=== PATIENT | female | born 1990 | race Caucasian/White ===

== ENCOUNTER 2025-06-21 07:58 | Emergency (ER) | payer OTHER, SELFPAY ==
--- NOTE | ~2025-06-21 | US_ITS ---
EXAMINATION: US pelvic complete w TV INDICATION: Passed blood clots. Comparison:No prior studies for comparison. TECHNIQUE: Multiple transabdominal and endovaginal sonographic images of the pelvis performed. FINDINGS: The uterus measures 8.9 x 4.6 x 4.7 cm. The endometrial complex measures 5 mm. The right ovary measures 3 x 3 x 2.4 cm and the left ovary measures 3 x 2.7 x 3.2 cm. There are small follicles in each ovary. Normal doppler signal in both ovaries. There is no free fluid in the pelvis. There are no abnormal masses seen on either side. IMPRESSION: 1. Unremarkable pelvic ultrasound. Reviewed, dictated and finalized at location I. 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
--- OUTSIDE RECORDS SUMMARY | 2025-06-21 08:02 | XMS_ITS | Clinical Summary ---
Author Organization [facility] Virtual Care Address [address] [place] [phone] Phone Care Team Providers Care School Clerk Name Role Phone Susi Negro NP Primary Care Provider [phone] Allergies Active Allergy Reactions Criticality Noted Date Comments Avocado Swollen tongue High 05/24/2025 Only fresh Avocado Coconut Swollen tongue High 05/24/2025 Frank Swollen tongue High 05/24/2025 Also vomit Benton Swollen tongue High 05/24/2025 Medications multivitamin with minerals tablet Take 1 tablet by mouth daily Active inhalational spacing device (Aerochamber MV) spacerIndications: Viral URI with cough Use with albuterol inhaler 1 each 5 Active methylphenidate ER (CONCERTA) 36 mg CR tabletIndications: Attention deficit hyperactivity disorder (ADHD), predominantly inattentive type TAKE 2 TABLETS BY MOUTH ONCE DAILY IN THE MORNING 5 Active metFORMIN (GLUCOPHAGE) 1,000 mg tabletIndications: PCOS (polycystic ovarian syndrome) Take 1 tablet (1,000 mg total) by mouth daily with breakfast 90 tablet 4 5 04/26/20 26 Active albuterol HFA (PROVENTIL HFA,VENTOLIN HFA,PROAIR HFA) 90 mcg/actuation inhalerIndications :Viral URI with cough Inhale 2 puffs every 4 (four) hours as needed for wheezing or shortness of breath 18 g 5 Active drospirenone-ethin yl estradioL (Elissa, 28,) 3-0.02 mg per tabletIndications: OCP (oral contraceptive pills) initiation Take 1 tablet by mouth daily 84 tablet 3 5 05/24/20 26 Active Active Problems Problem Noted Date Diagnosed Date PCOS (polycystic ovarian syndrome) 04/26/2024 Assessment & Plan (04/26/2025 8:40 AM CDT): Stable Has started having more consistent menstrual cycles approx every 29 days Metformin 1000 mg daily Orders: metFORMIN (GLUCOPHAGE) 1,000 mg tablet; Take 1 tablet (1,000 mg total) by mouth daily with breakfast Hemoglobin A1c; Future Ambulatory referral to Gynecology; Future Assessment & Plan (04/26/2024 12:54 PM CDT): Previously diagnosed Was on Metformin previously Restart Metformin 500 mg BID Attention deficit hyperactiv ity disorder (ADHD), predominantly inattentive type 04/26/2024 Assessment & Plan (04/26/2025 8:40 AM CDT): Chronic, stable Follows with psychiatry online Continue Concerta 36 mg daily Assessment & Plan (04/26/2024 12:55 PM CDT): Seeing psychiatrist online out of [place]; Jackie Covarrubias Continue Adderall XR 20 mg daily Encounters Date Type Department Care Team Description 06/05/2025 8:[address] Lab [address] [address] Screening for STD (sexually transmitted disease) 05/29/2025 Results Follow-Up [facility] at [address] [address] Torres Elizabeth NP Pap and HPV, reflex to HPV Genotypes 05/24/2025 1:[address] Office Visit [facility] at [address] [address] Torres Elizabeth NP Well woman exam (Primary Dx); Screening for STD (sexually transmitted disease); OCP (oral contraceptive pills) initiation 04/28/2025 Telephone [facility] [address] [place] [address] [address] [place] [address] Betty Brian 04/26/2025 9:00 AM CDT Lab [facility] [address] [place] [address] Screening for thyroid disorder; PCOS (polycystic ovarian syndrome); Encounter for screening for lipid disorder; Encounter for annual physical exam 04/26/2025 8:30 AM CDT [facility] Visit [facility] [address] [phone] Susi Negro NP Encounter for annual physical exam (Primary Dx); PCOS (polycystic ovarian syndrome); Encounter for screening for lipid disorder; Viral URI with cough; Attention deficit hyperactivity disorder (ADHD), predominantly inattentive type; Screening for thyroid disorder 04/26/2025 Results Follow-Up [facility] [address] [place] [phone] Susi Negro NP Thyroid Function [place], Hemoglobin A1c, Lipid panel, Additional followed-up results: 4 from Last 3 Months Immunizations Immunization Administration Dates Next Due Influenza, Unspecified 04/26/2024(Deferr ed: Patient Refused),04/19/2023(Deferred: Patient Refused) Medical History Medical History Date Comments PCOS (polycystic ovarian syndrome) ADHD (attention deficit hyperactivity disorder) Asthma Family History Medical History Relation Name Comments Lung cancer Father Urolithiasis Father Cancer Father's Brother Possibly in lymph node in neck? Breast cancer reoccurrence Maternal Grandmother Maternal Great Grandmother Diabetes Maternal Grandmother Insulin dependent Asthma Mother Hyperlipidemia Mother Hypertension Mother Sexual abuse Mother By her father Lung cancer Mother's Brother Small cell lung Lung cancer Paternal Grandfather Small c ell lung Breast cancer Paternal Grandmother Polycystic ovary syndrome Sister Sexual abuse Sister Raped multiple times Urolithiasis Sister Colon cancer Neg Hx Ovarian cancer Neg Hx Uterine cancer Neg Hx Relation Name Status Comments Father Father's Brother Maternal Grandmother Mother Alive Mother's Brother Other Paternal Grandfather Paternal Grandmother Sister Social History Tobacco Use Types Packs/Day Years Used Date Smoking Tobacco: Never Smokeless Tobacco: Never Tobacco Cessation:Counseling Given: Not Answered AUDIT-C Answer Date Recorded Q1: How often do you have a drink containing alcohol? Never 04/26/2024 Q2: How many drinks containi ng alcohol do you have on a typical day when you are drinking? Patient does not drink Q3: How often do you have si x or more drinks on one occasion? Never 04/26/2024 PHQ-2 Answer Date Recorded PHQ-2 Total Score 0 05/24/2025 Comments No Sex and Gender Information Value Date Recorded Sex Assigned at Not on file Legal Sex Female 12:32 PM CDT Gender Identity Not on file Sexual Orientation Not on file Obstetrics History Para Term AB IAB SAB Ectopic Multiple Livin g Live Births 1 1 1 Date Outcome GA Total Labor Labor/2nd/3rd Weight Sex Type Anes PTL Brittney A1 A5 Name Clin 022 Term 39w 0d M C-Sec tion Epidura l Complications:Hypotension,De livery by emergency ,Umbilical cord around neck with cord compression Last Filed Vital Signs Vital Sign Reading Time Taken Comments Blood Pressure 108/72 05/24/2025 1:[address] Pulse 76 04/26/2025 8:14 AM CDT Temperature 36.6 C (97.9 F) 04/26/2025 8:14 AM CDT Respiratory Rate 16 04/26/2025 8:14 AM CDT Oxygen Saturation 99% 04/26/2025 8:14 AM CDT Inhaled Oxygen Concentration - - Weight 78.9 kg (174 lb) 05/24/2025 1:[address] Height 157.5 cm (5' 2) 05/24/2025 1:[address] Body Mass Index 31.83 05/24/2025 1:[address] Plan of Treatment Health Maintenance Due Date Last Done Comments DTaP/Tdap/Td Vaccine (1 - Tdap) 2001 Varicella Vaccines (1 of 2 - 13+ 2-dose series) 2003 HPV Vaccines (1 - 3-dose SCD M series) 2017 Influenza Vaccine (#1) 2025 Cervical Cancer Screening 05/24/2026 05/24/2025 Depression Screening 05/24/2026 05/24/2025, 04/26/2025, 04/26/2024 Regular Well Visit/Exam 18-64 05/24/2026, 04/26/2025 Hepatitis B Screening Completed 06/05/2025 Hepatitis C Screening Completed 06/05/2025 , 04/26/2024 Pneumococcal vaccine <65 Aged Out No longer eligible based on patient's age to complete this topic Procedures Procedure Name Priority Date/Time Associated Diagnosis Comments HSV 2 ANTIBODY, IGG Routine 06/05/2025 8 :[address] Screening for STD (sexually transmitted disease) HSV 1 ANTIBODY, IGG Routine 06/05/2025 8 :[address] Screening for STD (sexually transmitted disease) HIV 1/2 ANTIBODY PLUS P24 ANTIGEN Routine 06/05/2025 8:[address] Screening for STD (sexually transmitted disease) RPR Routine 06/05/2025 8:[address] Screening for STD (sexually transmitted disease) HEPATITIS C ANTIBODY Routine 06/05/2025 8:[address] Screening for STD (sexually transmitted disease) HEPATITIS B SURFACE ANTIGEN Routine 06/05/2025 8:[address] Screening for STD (sexually transmitted disease) PAP AND HPV, REFLEX TO HPV GENOTYPES Routine 05/24/2025 1:[address] Well woman exam N. GONORRHOEAE/C. TRACHOMATIS AMPLIFICATION Routine 05/24/2025 1:[address] EGFR Routine 04/26/2025 9:49 AM CDT Encounter for annual physical exam DIFFERENTIAL AUTO Routine 04/26/2025 9:4 9 AM CDT Encounter for annual physical exam CBC WITH AUTO DIFFERENTIAL Routine 04/26/2025 9:49 AM CDT Encounter for annual physical exam COMPREHENSIVE METABOLIC PANEL Routine 04/26/2025 9:49 AM CDT Encounter for annual physical exam LIPID PANEL Routine 04/26/2025 9:49 AM CDT Encounter for screening for lipid disorder HEMOGLOBIN A1C Routine 04/26/2025 9:49 AM CDT PCOS (polycystic ovarian syndrome) THYROID FUNCTION CASCADE Routine 04/26/2025 9:49 AM CDT Screening for thyroid disorder from Last 3 Months Results * HIV 1/2 Antibody plus p24 Antigen Blood (06/05/2025 8:[address]) HIV 1/2 ab + p24 ag Nonreactive Nonreactive Comment:Nonreactive for HIV- 1 antigen and HIV-1/HIV-2 antibodies. No laboratory evidence of HIV infection. If acute HIV infection is suspected, consider testing for HIV-1 RNA. Current interpretive data was last revised on 22. Blood 06/05/2025 8:[address] 06/05/2025 11:[address] Torres Elizabeth [facility] MICROBIOLOGY [employer] [facility] ORDERABLES Final Result VIVIANE [address] [facility] Department [place] [address] * Hepatitis C antibody Blood (06/05/2025 8:[address]) Pathologist [facility] Hep C Ab Nonreactive Nonreactive Comment: Antibodies to HCV not detected. Does NOT exclude the possibility of recent exposure to HCV. Current interpretive data was last revised on 22 Interpretive Data Nonreactive: Antibodies to HCV not detected. Does NOT exclude the possibility of recent exposure to HCV. Equivocal: Equivocal for HCV antibodies. Supplemental molecular testing will be automatically performed to determine infection status in accordance with current CDC screening recommendations. Reactive: Positive for HCV antibodies. This may represent current or past HCV infection. Supplemental molecular testing will be automatically performed to determine current infection status in accordance with current CDC screening recommendations. Interpretive data was last revised on 2019. Blood 06/05/2025 8:[address] 06/05/2025 11:[address] Torres Elizabeth TRACK MAN LAB MICROBIOLOGY - GENE RAL ORDERABLES Final Result Performing Organization Address [facility] de Phone Number [place] [phone] [facility] [place] [address] * HSV 2 IgG Antibody Blood (06/05/2025 8:[address]) [facility] HSV 2 IgG Nonreactive Nonreactive Comment: Interpretive Data 1. Nonreactive: No detectable IgG antibody to HSV-2. 2. Equivocal: Presence or absence of detectable antibodies to HSV-2 cannot be determined and the test should be repeated. 3. Reactive: Indicates presence of detectable IgG antibody to HSV-2. Current interpretive data was last revised on 2022. Testing performed by: [facility], [address] [place] [address]., [id number] Blood 06/05/2025 8:[address] 06/05/2025 1:[address] [facility] LAB MICROBIOLOGY - GENE RAL ORDERABLES Final Result Performing Organization Address [facility] de Phone Number [place] [phone] [facility] [place] [address] * HSV 1 IgG Antibody Blood (06/05/2025 8:[address]) [facility] HSV 1 IgG Nonreactive Nonreactive Comment: Interpretive Data 1. Nonreactive: No detectable IgG antibody to HSV-1. 2. Equivocal: Presence or absence of detectable antibodies to HSV-1 cannot be determined and the test should be repeated. 3. Reactive: Indicates presence of detectable IgG antibody to HSV-1. Current interpretive data was last revised on 2019. Testing performed by: [facility], [address] [place] [address], [place]., [address] Blood 06/05/2025 8:[address] 06/05/2025 1:[address] [facility] LAB MICROBIOLOGY - GENE RAL ORDERABLES Final Result Performing Organization Address City/[facility]/ZIP Co de Phone Number ARIANNA[address] [place] [address] * RPR Blood (06/05/2025 8:[address]) Pathologist [facility] RPR Nonreactive Nonreactive Comment:Testing performed by : [facility], [address] [facility], [place] [address] Blood 06/05/2025 8:[address] 06/05/2025 1:[address] [facility] [place] [facility] LAB MICROBIOLOGY - GENE RAL ORDERABLES Final Result Performing Organization Address [facility] Co de Phone Number [address] [address] * Hepatitis B Surface Antigen Blood (06/05/2025 8:[address]) Pathologist [facility] HepBsAg Nonreactive Nonreactive Blood 06/05/2025 8:[address] 06/05/2025 11:[address] [facility] [employer] NP LAB MICROBIOLOGY - GENE RAL ORDERABLES Final Result Performing Organization Address [facility] de Phone Number [address] [address] * Pap and HPV, reflex to HPV Genotypes (05/24/2025 1:[address]) Pathologist [facility] Clinical indication Comment [facility] 02 Comment:NEGATIVE FOR INTRAEP ITHELIAL LESION OR MALIGNANCY. Specimen adequacy: Comment [facility] 02 Comment: Satisfactory for evaluation. Endocervical and/or squamous metaplastic cells (endocervical component) are present. Clinician provided ICD10 Comment [facility] 02 Comment:Z01.419 Performed by Comment [facility] 02 Comment:Dominga Uriarte, Choir Teacher (ASCP) . . [facility] 02 Note: Comment [facility] 02 Comment: The Pap smear is a screening test designed to aid in the detection of premalignant and malignant conditions of the uterine cervix. It is not a diagnostic procedure and should not be used as the sole means of detecting cervical cancer. Both false-positive and false-negative reports do occur. Test methodology Comment [facility] 02 Comment: This liquid based ThinPrep(R) pap test was interpreted using the ReInnervate(R) Genius(TM) Cervical Algorithm whole slide imaging system. HPV Aptima Negative Negative [facility] - Comment: This nucleic acid amplification test detects fourteen high-risk HPV types (16,18,31,33,35,39,45,51,52,56,58,59,66,68) without differentiation. HPV Genotype Reflex Comment [facility] 02 Comment:Criteria not met, HP V Genotype not performed. Thin prep-Endocervical 05/24/2025 1:[address] 05/24/2025 Narrative [facility] - 05/26/2025 9:[address] Performed at: - [address] [id number] Manager Molecular: Martha Torrez MD, Phone: [phone] Performed at: - [address] [id number] Manager Molecular: Martha Torrez MD, Phone: [phone] Torres Elizabeth NP LAB CYTOLOGY ORDERABLES Final Result Performing Organization Address City/State/[facility] Co de Phone Number [facility] 02 [facility] - * N. gonorrhoeae/C. trachomatis Amplification (05/24/2025 1:[address]) C. trachomatis RNA Negative Negative [facility] - 01 N. gonorrhoeae RNA Negative Negative [facility] - 01 05/24/2025 1:[address] 05/24/2025 Narrative [facility] - 05/26/2025 9:[address] Performed at: - [address] [id number] Manager Molecular: Martha Torrez MD, Phone: [phone] Specimen Comment: [id number] Specimen Comment: No. of containers..01 ThinPrep Vial us Torres Elizabeth TRACK MAN LAB MICROBIOLOGY - GENE RAL ORDERABLES Final Result [facility] - 01 * eGFR (04/26/2025 9:49 AM CDT) eGFR >90 >=60 mL/min/1. 73 m2 Comment: Interpretive Data Reference Interval Normal >/= 90 mL/min/1.73m2 Mildly decreased* 60 - 89 mL/min/1.73m2 Mildly to moderately decreased 45 - 59 mL/min/1.73m2 Moderately to severely decreased 30 - 44 mL/min/1.73m2 Severely decreased 15 - 29 mL/min/1.73m2 Kidney Failure < 15 mL/min/1.73m2 *Relative to young adult level Estimated glomerular filtration rate is determined by the 2020 CKD-EPI equation recommended by the National Kidney Foundation (A Unifying Approach to GFR Estimation: Recommendations of the NKF-ASK Task Force on Reassessing the Inclusion of Race in Diagnosing Kidney Disease, JASN 2020). The CKD-EPI equation should not be used for patients with unstable renal function and has not been validated in children and those over 70. Current interpretive data was last reviewed 2021. Testing performed by: [address] [address] Blood 04/26/2025 9:49 AM CDT 04/26/2025 3:25 PM CDT Susi Negro TRACK MAN LAB BLOOD ORDERABLES Final Resul t [facility] ([place]) [address] [facility] [place] [address] * Differential, auto (04/26/2025 9:49 AM CDT) Neutrophil abs 4.74 1.50 - 6.50 K/cumm Comment:Testing performed by : [address] [address] Imm gran abs 0.02 0.00 - 0.10 K/cumm [facility] ([place]) Comment:Testing performed by : [facility], [address] [place] [address]., [address] Lymphocyte abs 2.09 0.80 - 3.30 K/cumm [facility] ([place]) Comment:Testing performed by : [facility], [address] [place] [address]., [address] Monocyte abs 0.36 0.20 - 0.80 K/cumm [facility] ([place]) Comment:Testing performed by : [facility], [address] [place] [address]., [address] Eosinophil abs 0.20 0.00 - 0.50 K/cumm [facility] ([place]) Comment:Testing performed by : [facility], [address] [place] [address]., [address] Basophil abs 0.06 0.00 - 0.10 K/cumm [facility] ([place]) Comment:Testing performed by : [address] [address] Neutrophil pct 63.4 % [facility] ([place]) Comment: Interpretive Data Percent cell count reference ranges are not reported, since discordance with absolute values may lead to misinterpretation of CBC data. Current Interpretive Data was last revised on 2017. Testing performed by: [address] [address] Imm gran pct 0.3 % [facility] ([place]) Comment: Interpretive Data Percent cell count reference ranges are not reported, since discordance with absolute values may lead to misinterpretation of CBC data. Current Interpretive Data was last revised on 2017. Testing performed by: [address] [address] Lymphocyte pct 28.0 % [facility] ([place]) Comment: Interpretive Data Percent cell count reference ranges are not reported, since discordance with absolute values may lead to misinterpretation of CBC data. Current Interpretive Data was last revised on 2017. Testing performed by: [address] [address] Monocyte pct 4.8 % [facility] ([place]) Comment: Interpretive Data Percent cell count reference ranges are not reported, since discordance with absolute values may lead to misinterpretation of CBC data. Current Interpretive Data was last revised on 2017. Testing performed by: [facility], [address] [place] [address]., [address] Eosinophil pct 2.7 % PETRA H[facility] ([place]) Comment: Interpretive Data Percent cell count reference ranges are not reported, since discordance with absolute values may lead to misinterpretation of CBC data. Current Interpretive Data was last revised on 2017. Testing performed by: [facility], [address] [place] [address]., [address] Basophil pct 0.8 % [facility] ([place]) Comment: Interpretive Data Percent cell count reference ranges are not reported, since discordance with absolute values may lead to misinterpretation of CBC data. Current Interpretive Data was last revised on 2017. Testing performed by: [facility], [address] [place] [address]., [address] Blood 04/26/2025 9:49 AM CDT 04/26/2025 3:01 PM CDT Susi Negro LAB BLOOD ORDERABLES Final Resul t VIVIANE RAFAEL ([place]) 1 [facility] [place] [employer] [place] [address] * Thyroid Function [place] (04/26/2025 9:49 AM CDT) Pathologist [facility] TSH 1.66 0.30 - 4.20 mcIUnit/mL Comment:Testing performed by : [address] [address] Blood 04/26/2025 9:49 AM CDT 04/26/2025 3:01 PM CDT Susi Negro LAB BLOOD ORDERABLES Final Resul t ARIANNAVANESA RAFAEL ([place]) 1 [facility] [place] [address] * CBC with auto differential (04/26/2025 9:49 AM CDT) WBC 7.47 3.80 - 9.90 K/cumm Comment:Testing performed by : [address], [address] Hgb 13.7 11.9 - 15.5 g/dL [facility] ([place]) Comment:Testing performed by : [address], [address] Hct 41.8 35.6 - 45.5 % [facility] ([place]) Comment:Testing performed by : [address], [address] Plt 249 150 - 400 K/cumm [facility] ([place]) Comment:Testing performed by : [address], [address] MPV 10.8 9.1 - 12.3 fL [facility] ([place]) Comment:Testing performed by : [address], [address] RBC 4.78 3.90 - 5.20 M/cumm [facility] ([place]) Comment:Testing performed by : [address], [address] MCV 87.4 81.3 - 96.4 fL [facility] ([place]) Comment:Testing performed by : [address], [address] MCH 28.7 27.1 - 33.3 pg [facility] ([place]) Comment:Testing performed by : [address], [address] MCHC 32.8 32.3 - 35.7 g/dL [facility] ([place]) Comment:Testing performed by : [address], [address] RDW CV 13.2 11.1 - 14.9 % [facility] ([place]) Comment:Testing performed by : [address], [address] RDW SD 42.1 35.7 - 48.1 fL [facility] ([place]) Comment:Testing performed by : [address], [address] NRBC abs 0.00 0.00 - 0.01 K/cumm [facility] ([place]) Comment:Testing performed by : [address], [address] Blood 04/26/2025 9:49 AM CDT 04/26/2025 3:01 PM CDT Susi Negro NP LAB BLOOD ORDERABLES Final Resul t Performing Organization Address [facility] de Phone Number VIVIANE [facility] ([place]) [address] [place] [address] * Hemoglobin A1c (04/26/2025 9:49 AM CDT) Hgb A1C 4.9 4.0 - 5.6 % Comment:Testing performed by : [facility], [address] [place] [address]., [address] Estimated Average Glucose 94 mg/dL [facility] ([place]) Comment: The ADA recommends reporting an estimated Average Glucose (eAG) with all Hemoglobin A1c results using the equation derived from a study of 507 normal and diabetic adults. Minority populations were underrepresented and children were not included. (Diabetes Care 31:2427-6514, 2008). The eAG is not equivalent to a fasting glucose. Testing performed by: [facility], [address] [place] [address]., [address] Blood 04/26/2025 9:49 AM CDT 04/26/2025 3:01 PM CDT Susi Negro NP LAB BLOOD ORDERABLES Final Resul t Performing Organization Address [facility] de Phone Number VIVIANE H[facility] ([place]) [address] [place] [address] [place] [address] * (ABNORMAL) Lipid panel (04/26/2025 9:49 AM CDT) Cholesterol 201(H) 30 - 199 mg/dL Comment: Interpretive Data Ages < or = 19 years Acceptable: <170 mg/dL Borderline high: 170-199 mg/dL High: >or= 200 mg/dL Ages > or = 20 years Desirable: <200 mg/dL Borderline high: 200-239 mg/dL High: >or= 240 mg/dL Literature References: 1. Expert Panel on Integrated Guidelines for Cardiovascular Health and Risk Reduction in Children and Adolescents. Pediatrics 2011;128:S213 2. NCEP Expert Panel. Circulation 2004;110:227 Current Interpretive Data was last revised on 2018. Testing performed by: [facility], [address] [place] [address]., [address] Triglycerides 109 <=149 mg/dL [facility] ([place]) Comment: Interpretive Data Ages < or = 9 years Acceptable: <75 mg/dL Borderline high: 75-99 mg/dL High: >or= 100 mg/dL Ages 10 to 20 years Acceptable: <90 mg/dL Borderline high: 90-129 mg/dL High: >or= 130 mg/dL Ages > or = 20 years Desirable: <150 mg/dL Borderline high: 150-199 mg/dL High: 200-499 mg/dL Very high: >or= 499 mg/dL Literature References: 1. Expert Panel on Integrated Guidelines for Cardiovascular Health and Risk Reduction in Children and Adolescents. Pediatrics 2011;128:S213 2. NCEP Expert Panel. Circulation 2004;110:227 Current Interpretive Data was last revised on 2018. Testing performed by: [facility], [address] [place] [address]., [address] HDL 43 >=40 mg/dL [facility] ([place]) Comment: Interpretive Data Ages < or = 19 years Acceptable: >45 mg/dL Borderline low: 40-45 mg/dL Low: <40 mg/dL Ages > or = 20 years Desirable: >or= 60 mg/dL Low: <40 mg/dL Literature References: 1. Expert Panel on Integrated Guidelines for Cardiovascular Health and Risk Reduction in Children and Adolescents. Pediatrics 2011;128:S213 2. NCEP Expert Panel. Circulation 2004;110:227 Current Interpretive Data was last revised on 2018. Testing performed by: [facility], [address] [place] [address]., [id number] LDL, calculated 138(H) <=129 mg/dL [facility] ([place]) Comment: Interpretive Data Ages < or = 19 years Acceptable: <110 mg/dL Borderline high: 110-129 mg/dL High: >or= 130 mg/dL Ages > or = 20 years Optimal: <100 mg/dL Near optimal: 100-129 mg/dL Borderline high: 130-159 mg/dL High: >160 mg/dL Calculated using the Moshe LDL-C estimating equation. This equation was implemented on 2024. Prior to this date LDL-C was estimated using the Friedewald equation. Literature References: 1. Expert Panel on Integrated Guidelines for Cardiovascular Health and Risk Reduction in Children and Adolescents. Pediatrics 2011;128:S213 2. NCEP Expert Panel. Circulation 2004;110:227 3. Moshe M et al. CHAO Cardiol. 2019November 17;5(5):540-548. doi: 10.1001/jamacardio.2020.0013 Current Interpretive Data was last revised on 2024. Testing performed by: [address] [address] Non-HDL Cholesterol 158 mg/dL [facility] ([place]) Comment: Interpretive Data Ages < or = 19 years Acceptable: <120 mg/dL Borderline high: 120-144 mg/dL High: >145 mg/dL Ages > or = 20 years When triglycerides are >200 mg/dL, Non-HDL cholesterol is a secondary target of therapy with treatment goals that are 30 mg/dL greater than the LDL cholesterol target. Literature References: 1. Expert Panel on Integrated Guidelines for Cardiovascular Health and Risk Reduction in Children and Adolescents. Pediatrics 2011;128:S213 2. NCEP Expert Panel. Circulation 2004;110:227 Current Interpretive Data was last revised on 2018. Testing performed by: [address] [address] Chol/HDL ratio 5 [facility] ([place]) Comment:Testing performed by : [address] [address] Blood 04/26/2025 9:49 AM CDT 04/26/2025 3:01 PM CDT us Susi Negro NP LAB BLOOD ORDERABLES Final Resul t [facility] ([place]) 1 [facility] [place] [address] * Comprehensive metabolic panel (04/26/2025 9:49 AM CDT) Sodium 137 135 - 145 mmol/L Comment:Testing performed by : [facility], [address] [place] [address]., [address] Potassium, pl 4.5 3.3 - 4.9 mmol/L [facility] ([place]) Comment:Testing performed by : [facility], [address] [place] [address]., [address] Chloride 104 97 - 110 mmol/L [facility] ([place]) Comment:Testing performed by : [facility], [address] [place] [address]., [address] CO2 23 22 - 32 mmol/L [facility] ([place]) Comment:Testing performed by : [facility], [address] [place] [address]., [address] Anion gap 10 2 - 15 mmol/L [facility] ([place]) Comment:Testing performed by : [facility], [address] [place] [address]., [address] BUN 12 6 - 25 mg/dL [facility] ([place]) Comment:Testing performed by : [address] [address] Creatinine 0.62 0.60 - 1.10 mg/dL [facility] ([place]) Comment:Testing performed by : [address] [address] Glucose 90 70 - 199 mg/dL [facility] ([place]) Comment: Interpretive Data Fasting glucose >/= 126 mg/dl is diagnostic for diabetes. Fasting is defined as no caloric intake for at least 8 hours. Fasting glucose between 100 mg/dl to 125 mg/dl is diagnostic of prediabetes. In a patient with classic symptoms of hyperglycemia or hyperglycemic crisis, a random glucose >/= 200 mg/dl is diagnostic for diabetes. In the absence of unequivocal hyperglycemia, results should be confirmed by repeat testing. The classification and Diagnosis of Diabetes Diabetes Care 2021; 46: S19-S40. Current interpretive data was last revised 2022. Testing performed by: [address] [address] Calcium 9.8 8.5 - 10.3 mg/dL [facility] ([place]) Comment:Testing performed by : [address] [address] Bilirubin, total 0.4 0.1 - 1.2 mg/dL [facility] ([place]) Comment:Testing performed by : [facility], [address] [place] [address]., [address] Protein, pl 7.4 6.5 - 8.5 g/dL [facility] ([place]) Comment:Testing performed by : [facility], [address] [place] [address], [address] Albumin 4.5 3.5 - 5.0 g/dL [facility] ([place]) Comment:Testing performed by : [facility], [address] [place] [address], [address] Alk phos 54 40 - 130 Units/L [facility] ([place]) Comment:Testing performed by : [facility], [address] [place] [address], [address] ALT 20 7 - 45 Units/L [facility] ([place]) Comment:Testing performed by : [facility], [address] [place] [address], [address] AST 24 10 - 45 Units/L [facility] ([place]) Comment:Testing performed by : [address], [address] Blood 04/26/2025 9:49 AM CDT 04/26/2025 3:01 PM CDT us Susi Negro NP LAB BLOOD ORDERABLES Final Resul t [facility] ([place]) 1 [facility] [place] [address] from Last 3 Months Insurance [facility] Care Teams School Clerk Relationship Specialty Start Date End [place] [address] PCP - General Family Medicine 04/26/24
--- OUTSIDE RECORDS SUMMARY | 2025-06-21 08:02 | XMS_ITS | Encounter Summary ---
Author Organization [facility] Healthcare Address [address] [place] [address] Care Team Providers Care Database Manager Name Role Phone Ssui Negro NP Primary Care Provider [phone] Encounter Details Date Type Department Care Team ([facility] Contact Info) Description 04/26/2025 Results Follow-Up [facility] [address] [address] Susi Negro NP [address] [place] [address] Thyroid Function [place], Hemoglobin A1c, Lipid panel, Additional followed-up results: 4 Social History Tobacco Use Types Packs/Day Years Used Date Smoking Tobacco: Never Smokeless Tobacco: Never AUDIT-C Answer Date Recorded Q1: How often do you have a drink containing alcohol? Never 04/26/2024 Q2: How many drinks containi ng alcohol do you have on a typical day when you are drinking? Patient does not drink Q3: How often do you have si x or more drinks on one occasion? Never 04/26/2024 PHQ-2 Answer Date Recorded PHQ-2 Total Score (If total score is 3 or more points, staff should administer the PHQ-9) 0 04/26/2025 Comments Unknown Sex and Gender Information Value Date Recorded Sex Assigned at Not on file Legal Sex Female 12:32 PM CDT Gender Identity Not on file Sexual Orientation Not on file documented as of this encounter Functional Status * BP Location Answer Date of Assessment Author Right arm 04/26/2025 8:14 AM CDT Chikis Tolentino MA * BP Location Answer Date of Assessment Author Right arm 04/26/2025 8:14 AM CDT Chikis Tolentino MA documented as of this encounter Plan of Treatment Not on file documented as of this encounter Visit Diagnoses Not on filedocumented in this encounter Care Teams Database Manager Relationship Specialty Start Date End [place] [address] PCP - General Family Medicine 04/26/24 documented as of this encounter
--- OUTSIDE RECORDS SUMMARY | 2025-06-21 08:02 | XMS_ITS | Encounter Summary ---
Author Organization [facility] Healthcare Address [address] [place] [address] Care Team Providers Care Corporate Treasurer Name Role Phone Marky Susi GONZALEZ Primary Care Provider [phone] Encounter Details Date Type Department Care Team ([facility] Contact Info) Description 05/29/2025 Results Follow-Up [facility] at [address] [address] Torres Elizabeth NP [address] [place] [address] [address] [place] [address] Pap and HPV, reflex to HPV Genotypes Social History Tobacco Use Types Packs/Day Years [...] on file documented as of this encounter Plan of Treatment Scheduled Orders Name Type Priority Associated Diagnoses Orde r Schedule hCG, blood, quantitative Lab Routine Menorrhagia with irregular cycle Expected: 06/26/2025, Expires: 06/19/2026 CBC without differential Lab Routine Menorrhagia with irregular cycle Expected: 06/26/2025, Expires: 06/19/2026 documented as of this encounter Visit Diagnoses Diagnosis Menorrhagia with irregular cycle- Primary documented in this encounter Care Teams Corporate Treasurer Relationship Specialty Start Date End Date Susi [place] [address] PCP - General Family Medicine 04/26/24 documented as of this encounter
[2025-06-21 08:26] VITALS: BP 141/82; PULSE 93; RESP 20; TEMP 36.6; O2SAT 100
--- OUTSIDE RECORDS SUMMARY | 2025-06-21 08:46 | XMS_ITS | Encounter Summary ---
Author Organization [facility] Healthcare Address [address] [place] [address] Care Team Providers Care Quality Assurance Practice Manager Name Role Phone Marky Susi GONZALEZ Primary Care Provider [phone] Encounter Details Date Type Department Care Team ([facility] Contact Info) Description 05/29/2025 Results Follow-Up [facility] Women[facility] at [address] [address] Torres Elizabeth NP [address] [place] [address] [address] [place] [address] Pap and HPV, reflex to [...] Primary documented in this encounter Care Teams Quality Assurance Practice Manager Relationship Specialty Start Date End Date Susi [place] [address] PCP - General Family Medicine 04/26/24 documented as of this encounter
--- OUTSIDE RECORDS SUMMARY | 2025-06-21 08:46 | XMS_ITS | Encounter Summary ---
Author Organization [facility] Healthcare Address [address] [place] [address] Care Team Providers Care Climate Change Risk Assessor Name Role Phone Susi Negro NP Primary Care Provider [phone] Encounter Details Date Type Department Care Team ([facility] Contact Info) Description 04/26/2025 Results [facility]Up [facility] [address] [address] Susi Negro NP [address] [place] [address] Thyroid Function [place], Hemoglobin A1c, Lipid panel, Additional followed-up results: [...] on filedocumented in this encounter Care Teams Climate Change Risk Assessor Relationship Specialty Start Date End [place] [address] PCP - General Family Medicine 04/26/24 documented as of this encounter
--- OUTSIDE RECORDS SUMMARY | 2025-06-21 08:47 | XMS_ITS | Clinical Summary ---
Author Organization [facility] Virtual Care Address [address] [place] [phone] Phone Care Team Providers Care Aircraft Engine Dismantler Name Role Phone Susi Negro NP Primary Care Provider [phone] Allergies Active Allergy Reactions Criticality Noted Date Comments Avocado Swollen tongue High 05/24/2025 Only fresh Avocado Coconut Swollen tongue High 05/24/2025 Frank Swollen tongue High 05/24/2025 Also vomit [place] Swollen tongue High 05/24/2025 Medications multivitamin with [...] PM CDT): Seeing psychiatrist online out of [place]; Jackie Covarrubias Continue Adderall XR 20 mg daily Encounters Date Type Department Care Team Description 06/05/2025 8:30 AM TOOL GRINDER OPERATOR SURFACE Lab [address] [address] Screening for STD (sexually transmitted disease) 05/29/2025 Results Follow-Up [facility] at [address] [address] Torres Elizabeth NP Pap and HPV, reflex to HPV Genotypes 05/24/2025 1:00 PM TOOL GRINDER OPERATOR SURFACE Office Visit [facility] at [address] [address] Torres Elizabeth NP Well woman exam (Primary Dx); Screening for STD (sexually transmitted disease); OCP (oral contraceptive pills) initiation 04/28/2025 Telephone [facility] [address] [place] [address] [address] [place] [address] Betty Brian 04/26/2025 9:00 AM CDT Lab [facility] [address] [place] [address] Screening for thyroid disorder; PCOS (polycystic ovarian syndrome); Encounter for screening for lipid disorder; Encounter for annual physical exam 04/26/2025 8:30 AM CDT [facility] Visit [facility] [address] [id number] Susi Negro NP Encounter for annual physical exam (Primary Dx); PCOS (polycystic ovarian syndrome); Encounter for screening for lipid disorder; Viral URI with cough; Attention deficit hyperactivity disorder (ADHD), predominantly inattentive type; Screening for thyroid disorder 04/26/2025 Results Follow-Up [facility] [place] [address] [place] [phone] Susi Negro NP Thyroid Function [place], Hemoglobin A1c, Lipid panel, Additional followed-up results: [...] Comments Blood Pressure 108/72 05/24/2025 1:10 PM TOOL GRINDER OPERATOR SURFACE Pulse 76 04/26/2025 8:14 AM CDT Temperature 36.6 C (97.9 F) 04/26/2025 8:14 AM CDT Respiratory Rate 16 04/26/2025 8:14 AM CDT Oxygen Saturation 99% 04/26/2025 8:14 AM CDT Inhaled Oxygen Concentration - - Weight 78.9 kg (174 lb) 05/24/2025 1:10 PM TOOL GRINDER OPERATOR SURFACE Height 157.5 cm (5' 2) 05/24/2025 1:10 PM TOOL GRINDER OPERATOR SURFACE Body Mass Index 31.83 05/24/2025 1:10 PM TOOL GRINDER OPERATOR SURFACE Plan of Treatment Health Maintenance Due Date [...] ANTIBODY, IGG Routine 06/05/2025 8 :37 AM TOOL GRINDER OPERATOR SURFACE Screening for STD (sexually transmitted disease) HSV 1 ANTIBODY, IGG Routine 06/05/2025 8 :37 AM TOOL GRINDER OPERATOR SURFACE Screening for STD (sexually transmitted disease) HIV 1/2 ANTIBODY PLUS P24 ANTIGEN Routine 06/05/2025 8:37 AM TOOL GRINDER OPERATOR SURFACE Screening for STD (sexually transmitted disease) RPR Routine 06/05/2025 8:37 AM TOOL GRINDER OPERATOR SURFACE Screening for STD (sexually transmitted disease) HEPATITIS C ANTIBODY Routine 06/05/2025 8:37 AM TOOL GRINDER OPERATOR SURFACE Screening for STD (sexually transmitted disease) HEPATITIS B SURFACE ANTIGEN Routine 06/05/2025 8:37 AM TOOL GRINDER OPERATOR SURFACE Screening for STD (sexually transmitted disease) PAP AND HPV, REFLEX TO HPV GENOTYPES Routine 05/24/2025 1:55 PM TOOL GRINDER OPERATOR SURFACE Well woman exam N. GONORRHOEAE/C. TRACHOMATIS AMPLIFICATION Routine 05/24/2025 1:55 PM TOOL GRINDER OPERATOR SURFACE EGFR Routine 04/26/2025 9:49 AM CDT Encounter [...] plus p24 Antigen Blood (06/05/2025 8:37 AM TOOL GRINDER OPERATOR SURFACE) HIV 1/2 ab + p24 ag Nonreactive Nonreactive Comment:Nonreactive for HIV- 1 antigen and HIV-1/HIV-2 antibodies. No laboratory evidence of HIV infection. If acute HIV infection is suspected, consider testing for HIV-1 RNA. Current interpretive data was last revised on 22. Blood 06/05/2025 8:37 AM TOOL GRINDER OPERATOR SURFACE 06/05/2025 11:01 AM TOOL GRINDER OPERATOR SURFACE Torres Elizabeth [facility] MICROBIOLOGY [employer] [facility] ORDERABLES Final Result VIVIANE [address] [facility] [place] [address] * Hepatitis C antibody Blood (06/05/2025 8:37 AM TOOL GRINDER OPERATOR SURFACE) Pathologist [facility] Hep C Ab Nonreactive Nonreactive Comment: Antibodies [...] revised on 2019. Blood 06/05/2025 8:37 AM TOOL GRINDER OPERATOR SURFACE 06/05/2025 11:01 AM TOOL GRINDER OPERATOR SURFACE Torres Elizabeth [employer] LAB MICROBIOLOGY - GENE RAL ORDERABLES Final Result Performing Organization Address [facility] de Phone Number [place] [id number] [facility] [place] [address] * HSV 2 IgG Antibody Blood (06/05/2025 8:37 AM TOOL GRINDER OPERATOR SURFACE) [facility] HSV 2 IgG Nonreactive Nonreactive Comment: Interpretive Data 1. Nonreactive: No detectable IgG antibody to HSV-2. 2. Equivocal: Presence or absence of detectable antibodies to HSV-2 cannot be determined and the test should be repeated. 3. Reactive: Indicates presence of detectable IgG antibody to HSV-2. Current interpretive data was last revised on 2022. Testing performed by: [facility], [address] [place] [address]., [address] Blood 06/05/2025 8:37 AM TOOL GRINDER OPERATOR SURFACE 06/05/2025 1:31 PM TOOL GRINDER OPERATOR SURFACE [facility] NP LAB MICROBIOLOGY - GENE RAL ORDERABLES Final Result Performing Organization Address [facility] de Phone Number [place] [id number] [facility] [place] [address] * HSV 1 IgG Antibody Blood (06/05/2025 8:37 AM TOOL GRINDER OPERATOR SURFACE) [facility] HSV 1 IgG Nonreactive Nonreactive Comment: Interpretive Data 1. Nonreactive: No detectable IgG antibody to HSV-1. 2. Equivocal: Presence or absence of detectable antibodies to HSV-1 cannot be determined and the test should be repeated. 3. Reactive: Indicates presence of detectable IgG antibody to HSV-1. Current interpretive data was last revised on 2019. Testing performed by: [facility], [address] [place] [address], [place]., [address] Blood 06/05/2025 8:37 AM TOOL GRINDER OPERATOR SURFACE 06/05/2025 1:31 PM TOOL GRINDER OPERATOR SURFACE [facility] RiceClara NP LAB MICROBIOLOGY - GENE RAL ORDERABLES Final Result Performing Organization Address City/[facility]/ZIP Co de Phone Number ARIANNA[address] [place] [address] * RPR Blood (06/05/2025 8:37 AM TOOL GRINDER OPERATOR SURFACE) Pathologist [facility] RPR Nonreactive Nonreactive Comment:Testing performed by : [facility], [address] [facility], [place] [place] [address] Blood 06/05/2025 8:37 AM TOOL GRINDER OPERATOR SURFACE 06/05/2025 1:31 PM TOOL GRINDER OPERATOR SURFACE [facility] LAB MICROBIOLOGY - GENE RAL ORDERABLES Final Result Performing Organization Address [facility] Co de Phone Number [address] [address] * Hepatitis B Surface Antigen Blood (06/05/2025 8:37 AM TOOL GRINDER OPERATOR SURFACE) Pathologist [facility] HepBsAg Nonreactive Nonreactive Blood 06/05/2025 8:37 AM TOOL GRINDER OPERATOR SURFACE 06/05/2025 11:01 AM TOOL GRINDER OPERATOR SURFACE [facility] Sheldon NP LAB MICROBIOLOGY - GENE RAL ORDERABLES Final Result Performing Organization Address [facility] de Phone Number [address] [address] * Pap and HPV, reflex to HPV Genotypes (05/24/2025 1:55 PM TOOL GRINDER OPERATOR SURFACE) Pathologist [facility] Clinical indication Comment [facility] 02 Comment:NEGATIVE FOR INTRAEP ITHELIAL LESION OR MALIGNANCY. Specimen adequacy: Comment [facility] 02 Comment: Satisfactory for evaluation. Endocervical and/or squamous metaplastic cells (endocervical component) are present. Clinician provided ICD10 Comment [facility] 02 Comment:Z01.419 Performed by Comment [facility] Comment:Dominga Uriarte, Sales And Marketing Agent (ASCP) . . [facility] 02 Note: [...] ThinPrep(R) pap test was interpreted using the Sociall(R) Genius(TM) Cervical Algorithm whole slide imaging system. HPV Aptima Negative Negative [facility] - Comment: This nucleic acid amplification test detects fourteen high-risk HPV types (16,18,31,33,35,39,45,51,52,56,58,59,66,68) without differentiation. HPV Genotype Reflex Comment [facility] 02 Comment:Criteria not met, HP V Genotype not performed. Thin prep-Endocervical 05/24/2025 1:55 PM TOOL GRINDER OPERATOR SURFACE 05/24/2025 Narrative [facility] - 05/26/2025 9:08 PM TOOL GRINDER OPERATOR SURFACE Performed at: - Lab[address] [id number] Manufacturing Assistant: Martha Torrez MD, Phone: [phone] Performed at: - [address] [id number] Manufacturing Assistant: Martha Torrez MD, Phone: [phone] Torres Elizabeth NP LAB CYTOLOGY ORDERABLES Final Result Performing Organization Address City/State/[facility] Co de Phone Number [facility] - * N. gonorrhoeae/C. trachomatis Amplification (05/24/2025 1:55 PM TOOL GRINDER OPERATOR SURFACE) C. trachomatis RNA Negative Negative [facility] - 01 N. gonorrhoeae RNA Negative Negative [facility] - 01 05/24/2025 1:55 PM TOOL GRINDER OPERATOR SURFACE 05/24/2025 Narrative [facility] - 05/26/2025 9:08 PM TOOL GRINDER OPERATOR SURFACE Performed at: - [address] [id number] Manufacturing Assistant: Martha Torrez MD, Phone: [phone] Specimen Comment: [id number] Specimen Comment: No. of containers..01 ThinPrep Vial us Torres Elizabeth [employer]AMPAGNE MAKER LAB MICROBIOLOGY - GENE RAL ORDERABLES Final [...] was last reviewed 2021. Testing performed by: [address] [address] Blood 04/26/2025 9:49 AM CDT 04/26/2025 3:25 PM CDT Susi Negro CHAMPAGNE MAKER LAB BLOOD ORDERABLES Final Resul t VIVIANE HALL ([employer]) 1 [facility] Department [place] [address] * Differential, auto (04/26/2025 9:49 AM CDT) Neutrophil abs 4.74 1.50 - 6.50 K/cumm Comment:Testing performed by : [address] [address] Imm gran abs 0.02 0.00 - 0.10 K/cumm VIVIANE H[facility] ([employer]) Comment:Testing performed by : [facility], [address] [place] [address]., [address] Lymphocyte abs 2.09 0.80 - 3.30 K/cumm [facility] ([place]) Comment:Testing performed by : [facility], [address] [place] [address]., [address] Monocyte abs 0.36 0.20 - 0.80 K/cumm [facility] ([place]) Comment:Testing performed by : [facility], [address] [place] [address]., [address] Eosinophil abs 0.20 0.00 - 0.50 K/cumm [facility] ([place]) Comment:Testing performed by : [facility], [address] [place] [address]., [address] Basophil abs 0.06 0.00 - 0.10 K/cumm [facility] ([place]) Comment:Testing performed by : [address] [address] Neutrophil pct 63.4 % [facility] ([place]) Comment: Interpretive Data Percent cell count reference ranges are not reported, since discordance with absolute values may lead to misinterpretation of CBC data. Current Interpretive Data was last revised on 2017. Testing performed by: [address] [address] Imm gran pct 0.3 % [facility] ([place]) Comment: Interpretive Data Percent cell count reference ranges are not reported, since discordance with absolute values may lead to misinterpretation of CBC data. Current Interpretive Data was last revised on 2017. Testing performed by: [address] [address] Lymphocyte pct 28.0 % [facility] ([place]) Comment: Interpretive Data Percent cell count reference ranges are not reported, since discordance with absolute values may lead to misinterpretation of CBC data. Current Interpretive Data was last revised on 2017. Testing performed by: [address] [address] Monocyte pct 4.8 % [facility] ([place]) Comment: Interpretive Data Percent cell count reference ranges are not reported, since discordance with absolute values may lead to misinterpretation of CBC data. Current Interpretive Data was last revised on 2017. Testing performed by: [facility], [address] [place] [address]., [address] Eosinophil pct 2.7 % [facility] ([place]) Comment: Interpretive Data Percent cell count reference ranges are not reported, since discordance with absolute values may lead to misinterpretation of CBC data. Current Interpretive Data was last revised on 2017. Testing performed by: [facility], [address] [place] [address]., [address] Basophil pct 0.8 % [facility] ([place]) Comment: Interpretive Data Percent cell count reference ranges are not reported, since discordance with absolute values may lead to misinterpretation of CBC data. Current Interpretive Data was last revised on 2017. Testing performed by: [facility], [address] [place] [address]., [address] Blood 04/26/2025 9:49 AM CDT 04/26/2025 3:01 PM CDT Susi Negro LAB BLOOD ORDERABLES Final Resul t VIVIANE RAFAEL ([employer]) 1 [facility] [place] [address] * Thyroid Function [place] (04/26/2025 9:49 AM CDT) Pathologist [facility] TSH 1.66 0.30 - 4.20 mcIUnit/mL Comment:Testing performed by : [address] [address] Blood 04/26/2025 9:49 AM CDT 04/26/2025 3:01 PM CDT Susi Negro LAB BLOOD ORDERABLES Final Resul t ARIANNAVANESA RAFAEL ([employer]) 1 [facility] [place] [address] * CBC with auto differential (04/26/2025 9:49 AM CDT) WBC 7.47 3.80 - 9.90 K/cumm Comment:Testing performed by : [address], [address] Hgb 13.7 11.9 - 15.5 g/dL [facility] ([place]) Comment:Testing performed by : [address], [address] Hct 41.8 35.6 - 45.5 % [facility] ([place]) Comment:Testing performed by : [address], [address] Plt 249 150 - 400 K/cumm [facility] ([place]) Comment:Testing performed by : [address], [address] MPV 10.8 9.1 - 12.3 fL [facility] ([place]) Comment:Testing performed by : [address], [address] RBC 4.78 3.90 - 5.20 M/cumm [facility] ([place]) Comment:Testing performed by : [address], [address] MCV 87.4 81.3 - 96.4 fL [facility] ([place]) Comment:Testing performed by : [address], [address] MCH 28.7 27.1 - 33.3 pg [facility] ([place]) Comment:Testing performed by : [address], [address] MCHC 32.8 32.3 - 35.7 g/dL [facility] ([place]) Comment:Testing performed by : [address], [address] RDW CV 13.2 11.1 - 14.9 % [facility] ([place]) Comment:Testing performed by : [address], [address] RDW SD 42.1 35.7 - 48.1 fL [facility] ([place]) Comment:Testing performed by : [address], [address] NRBC abs 0.00 0.00 - 0.01 K/cumm [facility] ([place]) Comment:Testing performed by : [address], [address] Blood 04/26/2025 9:49 AM CDT 04/26/2025 3:01 PM CDT Susi Negro NP LAB BLOOD ORDERABLES Final Resul t Performing Organization Address [facility] de Phone Number VIVIANE HALL ([employer]) [address] [place] [address] * Hemoglobin A1c (04/26/2025 9:49 AM CDT) Hgb A1C 4.9 4.0 - 5.6 % Comment:Testing performed by : [facility], [address] [place] [address]., [address] Estimated Average Glucose 94 mg/dL VIVIANE HALL ([employer]) Comment: The ADA recommends reporting an estimated Average Glucose (eAG) with all Hemoglobin A1c results using the equation derived from a study of 507 normal and diabetic adults. Minority populations were underrepresented and children were not included. (Diabetes Care 31:4015-4304, 2008). The eAG is not equivalent to a fasting glucose. Testing performed by: [facility], [address] [place] [address]., [address] Blood 04/26/2025 9:49 AM CDT 04/26/2025 3:01 PM CDT Susi Negro NP LAB BLOOD ORDERABLES Final Resul t Performing Organization Address [facility] de Phone Number VIVIANE HALL ([employer]) [address] [place] [address] [place] [address] * (ABNORMAL) Lipid panel (04/26/2025 9:49 AM [...] last revised on 2018. Testing performed by: [facility], [address] [place] [address]., [address] Triglycerides 109 <=149 mg/dL [facility] ([place]) [...] last revised on 2018. Testing performed by: [facility], [address] [place] [address]., [address] HDL 43 >=40 mg/dL [facility] ([place]) [...] last revised on 2018. Testing performed by: [facility], [address] [place] [address]., [address] LDL, calculated 138(H) <=129 mg/dL [facility] [...] last revised on 2024. Testing performed by: [address] [address] Non-HDL Cholesterol 158 mg/dL [facility]E [facility] ([place]) [...] last revised on 2018. Testing performed by: [address] [address] Chol/HDL ratio 5 [facility]RA [facility] ([place]) Comment:Testing performed by : [address] [address] Blood 04/26/2025 9:49 AM CDT 04/26/2025 3:01 PM CDT us Susi Negro NP LAB BLOOD ORDERABLES Final Resul t VIVIANE [facility] ([place]) 1 [facility] [place] [address] * Comprehensive metabolic panel (04/26/2025 9:49 AM CDT) Sodium 137 135 - 145 mmol/L Comment:Testing performed by : [facility], [address] [place] [address]., [address] Potassium, pl 4.5 3.3 - 4.9 mmol/L [facility] ([place]) Comment:Testing performed by : [facility], [address] [place] [address]., [address] Chloride 104 97 - 110 mmol/L [facility] ([place]) Comment:Testing performed by : [facility], [address] [place] [address]., [address] CO2 23 22 - 32 mmol/L [facility] ([place]) Comment:Testing performed by : [facility], [address] [place] [address]., [address] Anion gap 10 2 - 15 mmol/L [facility] ([place]) Comment:Testing performed by : [facility], [address] [place] [address]., [address] BUN 12 6 - 25 mg/dL [facility] ([place]) Comment:Testing performed by : [address] [address] Creatinine 0.62 0.60 - 1.10 mg/dL [facility] ([place]) Comment:Testing performed by : [address] [address] Glucose 90 70 - 199 mg/dL CERNER [...] was last revised 2022. Testing performed by: [address] [address] Calcium 9.8 8.5 - 10.3 mg/dL [facility] ([place]) Comment:Testing performed by : [address] [address] Bilirubin, total 0.4 0.1 - 1.2 mg/dL [facility] ([place]) Comment:Testing performed by : [facility], [address] [place] [address]., [address] Protein, pl 7.4 6.5 - 8.5 g/dL [facility] ([place]) Comment:Testing performed by : [facility], [address] [place] [address], [address] Albumin 4.5 3.5 - 5.0 g/dL [facility] ([place]) Comment:Testing performed by : [facility], [address] [place] [address], [address] Alk phos 54 40 - 130 Units/L [facility] ([place]) Comment:Testing performed by : [facility], [address] [place] [address], [address] ALT 20 7 - 45 Units/L [facility] ([place]) Comment:Testing performed by : [facility], [address] [place] [address], [address] AST 24 10 - 45 Units/L [facility] ([place]) Comment:Testing performed by : [address], [address] Blood 04/26/2025 9:49 AM CDT 04/26/2025 3:01 PM CDT us Susi Negro NP LAB BLOOD ORDERABLES Final Resul t [facility] ([place]) 1 [facility] [place] [address] from Last 3 Months Insurance [facility] HMO/PPO Address: [facility] [address] [place] [address] Care Teams Aircraft Engine Dismantler Relationship Specialty Start Date End Date [place] [address] PCP - General Family Medicine 04/26/24
[2025-06-21 09:10] LABS: Hematocrit 39.9 % (37.0-47.0); Hemoglobin 13.8 g/dL (12.0-15.0); Immature Granulocyte Percent A 0.3 % (0-0.5); Lymphocytes Absolute Auto 2.22 K/mm3 (0.9-3.2); Mean Corpuscular HGB Conc 34.6 g/dl (32-36); Mean Corpuscular Hemoglobin 29.4 pg (26-34); Mean Corpuscular Volume 84.9 fl (80-100); Nucleated Red Blood Cells Absolute Auto 0.000 K/mm3 (0.0-0.012); Nucleated Red Blood Cells Perc 0.0 % (0.0-0.2); Platelet Count Result 267 k/mm3 (150-375); Red Blood Count 4.70 M/mm3 (4.2-5.4); White Blood Count 6.7 K/mm3 (4.5-10.0)
[2025-06-21 09:13] LABS: Alanine Aminotransferase 25 U/L (6-35); Albumin Level 4.7 g/dL (3.5-5.1); Alkaline Phosphatase 49 U/L (38-126); Anion Gap 6 mmol/L (4-12); Aspartate Amino Transferase 25 U/L (14-36); Bilirubin,Total 0.5 mg/dL (0.2-1.3); Blood Urea Nitrogen 13 mg/dL (7-17); Calcium 10.1 mg/dL (8.4-10.2); Carbon Dioxide 25 mmol/L (22-30); Chloride 105 mmol/L (98-107); Estimated CRCL calculation 98 ml/min; Estimated Glomerular Filt Rate > 60; Glucose 83 mg/dL (65-110); Potassium 4.1 mmol/L (3.4-5.0); Sodium 136 mmol/L (137-145); Total Protein 8.1 g/dL (6.3-8.2)
[2025-06-21 09:17] LABS: INR 1.0; Prothrombin Time 13.5 Seconds (11.1-14.7)
[2025-06-21 09:18] LABS: Partial Thromboplastin Time 23.1 Seconds (22.3-36.8)
[2025-06-21 09:29] LABS: Beta HCG Quantitative < 2.39 mIU/ML
[2025-06-21 09:35] VITALS: BP 136/87; PULSE 79; RESP 20; O2SAT 99
--- NOTE | 2025-06-21 09:35 | PC.NURSE ---
Dr Miles performed pelvic exam with this RN at bedside. Pt tolerated well
--- NOTE | 2025-06-21 10:30 | ED_ITS ---
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 Time Seen by Provider: 06/21/25 08:07 History of Present Illness HPI Narrative: Patient is menstrual cycles have been quite inconsistent, she does have PCOS and was started on oral contraceptive pills, but she had some irregular spotting, and then for last few days has had gushes of blood, some finally she did pass a large clot with some tissue, her OB wanted her to come into the ER for ultrasound. Review of Systems 2 Review of Systems: All systems reviewed & are unremarkable except as noted in HPI and below Exam 2 Narrative: EXAMINATION OF ORGAN SYSTEMS/BODY AREAS: Constitutional: Vital signs per nursing GENERAL:[No acute distress, non-toxic appearing.] HEAD: Normal with no signs of head trauma. EYES: EOMI, conjunctiva normal ENT: Hearing grossly intact LUNGS: Nonlabored breathing. HEART: [Regular rate and rhythm] ABD: [Soft], [nontender to palpation] : Minimal bleeding EXT: Normal range of motion SKIN: [No rashes or lesions.] NEURO: [Alert. No gross focal sensory or strength deficits.] PSYCH: Normal affect Course Vital Signs Vital signs: Vital Signs Temperature 97.9 F 06/21/25 08:26 Pulse Rate 93 06/21/25 08:26 Respiratory Rate 20 06/21/25 08:26 Blood Pressure 141/82 H 06/21/25 08:26 Pulse Oximetry 100 06/21/25 08:26 Oxygen Delivery Room Air 06/21/25 08:26 Temperature 97.9 F 06/21/25 08:26 Pulse Rate 79 06/21/25 09:35 Respiratory Rate 20 06/21/25 09:35 Blood Pressure 136/87 06/21/25 09:35 Pulse Oximetry 99 06/21/25 09:35 Oxygen Delivery Room Air 06/21/25 08:26 MDM MDM Narrative Medical decision making narrative: Patient is menstrual cycles have been quite inconsistent, she does have PCOS and was started on oral contraceptive pills, but she had some irregular spotting, and then for last few days has had gushes of blood, some finally she did pass a large clot with some tissue, her OB wanted her to come into the ER for ultrasound. Abd soft/nontender, with JAYY Castellon in room, pelvic exam without significant bleeding. Labs and ultrasound thankfully unremarkable. Patient reassured and will follow- up with her OBGYN with return precautions. Differential Diagnosis Differential Diagnosis: Miscarriage, dysfunctional uterine bleeding, ovarian cyst, ectopic, malignancy Lab Data 06/21/25 08:53 06/21/25 08:53 Labs: Lab Results 06/21/25 Range/Units 08:53 WBC 6.7 (4.5-10.0) K/mm3 RBC 4.70 (4.2-5.4) M/mm3 Hgb 13.8 (12.0-15.0) g/dL Hct 39.9 (37.0-47.0) % MCV 84.9 (80-100) fl MCH 29.4 (26-34) pg MCHC 34.6 (32-36) g/dl RDW 12.9 (11.5-14.5) % Plt Count 267 (150-375) k/mm3 MPV 9.6 (7.4-10.4) fl Immature Gran % (Auto) 0.3 (0-0.5) % Neut % (Auto) 53.8 (45.5-73.1) % Lymph % (Auto) 33.2 (18.3-44.2) % [place] % (Auto) 5.1 (2.6-8.5) % Eos % (Auto) 6.3 H (0-4.4) % Baso % (Auto) 1.3 H (0.2-1.2) % Lymph # (Auto) 2.22 (0.9-3.2) K/mm3 [place] # (Auto) 0.3 (0.1-0.6) K/mm3 Eos # (Auto) 0.4 H (0-0.3) K/mm3 Baso # (Auto) 0.1 (0.0-0.1) K/mm3 Abs Immat Gran (auto) 0.02 (0.00-0.031) K/mm3 Absolute Neuts (auto) 3.6 (1.3-6.7) K/mm3 Absolute Nucleated RBC 0.000 (0.0-0.012) K/mm3 Nucleated RBC % 0.0 (0.0-0.2) % PT 13.5 (11.1-14.7) Seconds INR 1.0 APTT 23.1 (22.3-36.8) Seconds Sodium 136 L (137-145) mmol/L Potassium 4.1 (3.4-5.0) mmol/L Chloride 105 (98-107) mmol/L Carbon Dioxide 25 (22-30) mmol/L Anion Gap 6 (4-12) mmol/L BUN 13 (7-17) mg/dL Creatinine 0.67 L (0.7-1.0) mg/dL Estim Creat Clear Calc 98 ml/min Estimated GFR > 60 (59 - ) Glucose 83 (65-110) mg/dL Calcium 10.1 (8.4-10.2) mg/dL Total Bilirubin 0.5 (0.2-1.3) mg/dL AST 25 (14-36) U/L ALT 25 (6-35) U/L Alkaline Phosphatase 49 (38-126) U/L Total Protein 8.1 (6.3-8.2) g/dL Albumin 4.7 (3.5-5.1) g/dL Beta HCG, Quant < 2.39 mIU/ML Blood Type B Positive Antibody Screen Negative Doses of RhIg Required 0 Imaging Data Radiologist's impression: ITS Impressions Pelvic/Transvag US 06/21/25 11:30 IMPRESSION: 1. Unremarkable pelvic ultrasound. Discharge Plan Discharge Clinical Impression: Dysfunctional uterine bleeding Patient Disposition: Home Condition: Stable Instructions: Abnormal (Dysfunctional) Uterine Bleeding (ED) Additional Instructions: Your ultrasound today and labs are thankfully normal. Please follow-up with your OBGYN, you can always return to the ER if your bleeding gets heavier or for any other issues. Patient Language: Unknown Follow-up/Referrals: Marky,Susi [place] [Primary Care Provider, Unknown]
[2025-06-21 12:04] VITALS: BP 133/92; PULSE 99; RESP 16; O2SAT 100
== END 2025-06-21 12:06 | disposition home or self-care (01) ==
PROVIDERS: Emergency Provider Emergency Medicine; PCP Nurse Practitioner
DX: N93.8 Other specified abnormal uterine and vaginal bleeding (principal); E28.2 Polycystic ovarian syndrome; Z79.3 Long term (current) use of hormonal contraceptives
CPT/HCPCS: 36415; 76830; 76856; 80053; 84702; 85025; 85461; 85610; 85730; 86850; 86900; 86901; 99284